=== PATIENT | female | born 1985 | race Caucasian/White ===

== ENCOUNTER 2021-04-18 00:45 | Emergency (ER) | payer MEDICAID ==
[~2021-04-18] VITALS: Ht 152.4 cm; Wt 57.6 kg
--- NOTE | 2021-04-18 00:58 | NUR ---
urine sent to lab
--- NOTE | 2021-04-18 01:05 | NUR ---
PATIENT BIBS C/O LEFT KIDNEY PAIN AND TINGLES WHEN DONE URINATING, - URGENCY, -DYSURIA. PATIENT A/OX 4 , RR EVEN AND UNLABORED. PATIENT CONNECTED TO MONITOR, VSS, WILL CONTINUE TO MONITOR.
[2021-04-18 01:09] LABS: BILIRUBIN,URINE Negative (NEGATIVE); COLOR,URINE YELLOW (YELLOW); LEUKOCYTE ESTERASE ,URINE Small (NEGATIVE); NITRITE, URINE Negative (NEGATIVE); PROTEIN,URINE Trace mg/dl (NEGATIVE); UGLUCOSE Negative (NEGATIVE); UROBILINOGEN,URINE 0.2 EU/dL (0.2)
[2021-04-18 01:17] LABS: BASOPHILS # (AUTO) 0.1 K/uL (0.0-0.2); BASOPHILS % (AUTO) 0.6 % (0.0-2.0); EOSINOPHILS % (AUTO) 1.6 % (0.0-6.0); HEMATOCRIT 37 % (33-45); HEMOGLOBIN 12.6 g/dL (11.5-14.8); LYMPHOCYTES # (AUTO) 3.5 K/uL (0.8-4.8); LYMPHOCYTES % (AUTO) 36.8 % (20.0-44.0); MEAN CORPUSCULAR HGB CONC 34 g/dl (31.0-36.0); MEAN CORPUSCULAR VOLUME 93 fL (82-100); MONOCYTES # (AUTO) 0.7 K/uL (0.1-1.30); MONOCYTES % (AUTO) 7.3 % (2.0-12.0); NEUTROPHILS # (AUTO) 5.1 K/uL (1.8-8.9); NEUTROPHILS % (AUTO) 53.7 % (43.0-81.0); PLATELET COUNT (AUTO) 292 K/uL (150-450); WHITE BLOOD COUNT (AUTO) 9.6 K/uL (4.3-11.0)
[2021-04-18] MEDS ORDERED: KETOROLAC TROMETHAMINE 15 MG/ML VIAL ONE (01:20)
[2021-04-18] MEDS ORDERED: ONDANSETRON HCL/PF 4 MG/2 ML VIAL ONE (01:20)
--- NOTE | 2021-04-18 01:24 | NUR ---
PATIENT TAKEN TO CT
[2021-04-18] MEDS ORDERED: KETOROLAC TROMETHAMINE INJ 30 MG/ML VIAL IV ONE (01:30)
[2021-04-18] MEDS ORDERED: ONDANSETRON HCL/PF 4 MG/2 ML VIAL IVP ONE (01:30)
[2021-04-18] MEDS ORDERED: IV NS 0.9% 1,000 ML BAG IV ONE (01:30)
[2021-04-18 01:38] LABS: CALCIUM, SERUM 9.2 mg/dL (8.5-10.1); CREATININE 0.6 mg/dL (0.6-1.3); POTASSIUM 4.1 mmol/L (3.5-5.1)
[2021-04-18 01:42] LABS: ALBUMIN 3.6 g/dL (3.4-5.0); BILIRUBIN,DIRECT 0.1 mg/dL (0.0-0.2); BILIRUBIN,TOTAL 0.3 mg/dL (0.2-1.0); TOTAL PROTEIN, SERUM 7.2 g/dL (6.4-8.2)
[2021-04-18] MEDS ORDERED: CEPH500C2 PO (02:18)
[2021-04-18 02:26] VITALS: BP 112/65
--- NOTE | 2021-04-18 02:29 | NUR ---
Patient discharged to home in stable condition. Rx and Written and verbal after care instructions given. Patient verbalizes understanding of instruction.
[2021-04-18 03:33] LABS: BACTERIA,URINE 2+ /HPF (None Seen)
[2021-04-18 03:35] LABS: URINE AMORPHOUS PHOSPHATES Few /HPF (None Seen)
== END 2021-04-18 02:30 | disposition home or self-care (01) ==
LOC: ER 00:45
DX: N39.0 Urinary tract infection, site not specified (principal)
CPT/HCPCS: 36415; 74176; 80048; 80076; 81001; 83690; 84703; 85025; 87086; 96361; 96374; 96375; 99284; J1885; J2405; J7030